=== PATIENT | male | born 1985 | race Caucasian/White ===

== ENCOUNTER 2021-05-25 23:37 | Emergency (ER) | payer OTHER ==
[~2021-05-25] VITALS: Ht 182.9 cm; Wt 80.7 kg
[2021-05-26] MEDS ORDERED: ACETAMINOPHEN650 M2 PO (05:04)
== END 2021-05-26 05:06 | disposition home or self-care (01) ==
LOC: ER 23:37
DX: B34.9 Viral infection, unspecified (principal); Z03.818 Encounter for observation for suspected exposure to other biological agents ruled out

== ENCOUNTER 2021-09-24 08:00 | Outpatient (CLI) | payer OTHER ==
[~2021-09-24 08:00] MED LIST: ACETAMINOPHEN650 M2 PO
== END 2021-09-24 08:30 | disposition home or self-care (01) ==
LOC: PPH VACUNA 08:00
PROVIDERS: ATTEND Emergency Medicine Pediatric Emergency Medicine
DX: Z23 Encounter for immunization (principal)